=== PATIENT | male | born 1955 | race Caucasian/White ===

== ENCOUNTER → 2021-10-05 | Outpatient (CLI) | payer MEDICARE, OTHER ==
--- NOTE | 2021-10-05 16:55 | US ---
EXAMINATION TYPE: US scrotum with doppler. DATE OF EXAM: 10/05/2021 COMPARISON: NONE CLINICAL HISTORY: 66-year-old male N50.89 scrotum swelling N50.82 scrotum pain. Right testicular pain and swelling TECHNIQUE: Grayscale and color Doppler Duplex imaging performed of the scrotum. FINDINGS: EXAM MEASUREMENTS: TESTICLES: Right Testicle: 4.2 x 2.6 x 3.3 cm Left Testicle: 3.9 x 2.6 x 3.2 cm EPIDIDYMIS HEAD: Right Epididymis: 3.2 cm, 3.1cm cyst Left Epididymis: 1.4 cm, 0.7cm cyst Doppler performed to assess for testicular vascularity; good bilateral color flow and waveforms are s een with superimposed arterial and venous flow. There is no evidence of testicular torsion. Presence of hydroceles: Small, right 3.2cm, left 2.9cm Presence of varicoceles: no IMPRESSION: 1. No sonographic evidence for testicular torsion or epididymoorchitis. 2. A large 3.1 cm epididymal head cyst on the right and smaller 7 mm on the left. 3. Small bilateral hydroceles.
== END | disposition home or self-care (01) ==
LOC: RADUSWWP 13:34
PROVIDERS: ATTEND Internal Medicine
DX: N43.3 Hydrocele, unspecified (principal); L72.9 Follicular cyst of the skin and subcutaneous tissue, unspecified
CPT/HCPCS: 76870; 93975